=== PATIENT | male | born 1970 | race Caucasian/White ===

== ENCOUNTER 2018-07-14 10:48 | Day surgery (SDC) | payer OTHER ==
[~2018-07-14 10:48] MED LIST: PROPOFOL 200 MG INJ
[2018-07-14] MEDS ORDERED: LIDOCAINE 2% (SDV) 5 ML INJ (12:30)
[2018-07-14] MEDS ORDERED: PROPOFOL 60 ML (12:30)
== END 2018-07-14 15:19 | disposition home or self-care (01) ==
LOC: GIL 10:48
DX: K21.9 Gastro-esophageal reflux disease without esophagitis (principal); K22.10 Ulcer of esophagus without bleeding; I10 Essential (primary) hypertension
CPT/HCPCS: 43239; 88305; 88312

== ENCOUNTER 2018-07-23 06:35 | Day surgery (SDC) | payer OTHER ==
[2018-07-23] MEDS ORDERED: PROPOFOL 200 MG INJ (07:00)
[2018-07-23] MEDS ORDERED: LIDOCAINE 2% (SDV) 5 ML INJ (07:00)
[2018-07-23] MEDS ORDERED: ROCURONIUM 50 MG INJ (07:00)
[2018-07-23] MEDS: CEFTRIAXONE 1 GM/50 ML (PMX) 50 ML IVPB (09:30)
[2018-07-23] MEDS ORDERED: FENTAnyl 50 MCG/ML VIAL (09:34)
[2018-07-23] MEDS ORDERED: MIDAZOLAM 1 MG/ML 2 ML INJ (09:35)
[2018-07-23] MEDS ORDERED: ONDANSETRON 4 MG INJ (10:13)
[2018-07-23] MEDS ORDERED: DEXAMETHASONE 4 MG/ML 5 ML INJ (10:13)
[2018-07-23] MEDS ORDERED: KETOROLAC 30 MG INJ (10:43)
[2018-07-23] MEDS ORDERED: FUROSEMIDE 20 MG INJ (10:44)
[2018-07-23] MEDS ORDERED: OXYCODONE/ACETAMINOPHEN (5/325) TAB PO ×2 (11:00)
[2018-07-23] MEDS ORDERED: HYDROCODONE/APAP (5/325) TAB PO (11:00)
[2018-07-23] MEDS ORDERED: FENTAnyl 50 MCG/ML VIAL IV ×2 (11:00)
[2018-07-23] MEDS ORDERED: HYDROmorphONE 1 MG/5 ML IV SYRINGE IV (11:00)
[2018-07-23] MEDS ORDERED: hydrALAzine 20 MG INJ IV (11:00)
[2018-07-23] MEDS ORDERED: LABETALOL HCL 20MG INJ IV (11:00)
[2018-07-23] MEDS ORDERED: ONDANSETRON 4 MG INJ IV (11:00)
[2018-07-23] MEDS ORDERED: MEPERIDINE 25 MG INJ IV (11:00)
[2018-07-23] MEDS: ONDANSETRON 4 MG INJ IV (11:27)
[2018-07-23] MEDS: HYDROmorphONE 1 MG/5 ML IV SYRINGE IV (11:27)
[2018-07-23] MEDS: ACETAMINOPHEN 1000MG/100ML IV 100 ML IVPB (13:11)
== END 2018-07-23 12:51 | disposition home or self-care (01) ==
LOC: SDS 06:35
DX: N20.0 Calculus of kidney (principal); I10 Essential (primary) hypertension
CPT/HCPCS: 50590; 74018

== ENCOUNTER 2018-07-26 08:48 | Emergency (ER) | payer OTHER ==
[2018-07-26 09:36] LABS: ADD MAN DIFF? NO
[2018-07-26 09:40] LABS: ABNORMAL IP MESSAGE 1; BASOPHILS % 0.5 % (0.0-2.0); EOSINOPHILS % 0.5 % (0.0-7.0); HEMATOCRIT 44.7 % (42.0-52.0); HEMOGLOBIN 14.9 g/dl (14.0-18.0); LYMPHOCYTES # 1.1 10^3/ul (0.8-2.9); LYMPHOCYTES % 27.6 % (15.0-51.0); MEAN CORPUSCULAR HEMOGLOBIN 33.1 pg (29.0-33.0); MEAN CORPUSCULAR HGB CONC 33.3 g/dl (32.0-37.0); MEAN CORPUSCULAR VOLUME 99.3 fl (82.0-101.0); MEAN PLATELET VOLUME 13.1 fl (7.4-10.4); MONOCYTE # 0.6 10^3/ul (0.3-0.9); MONOCYTES % 13.7 % (0.0-11.0); NEUTROPHIL # 2.3 10^3/ul (1.6-7.5); NEUTROPHILS % 57.7 % (39.0-77.0); PLATELET COUNT 147 10^3/UL (140-415); POSITIVE DIFF @See below; RED CELL DISTRIBUTION WIDTH 12.5 % (11.5-14.5)
[2018-07-26 10:04] LABS: ADD UMIC YES; UR ASCORBIC ACID NEGATIVE (NEGATIVE); UR BACTERIA FEW /HPF (NONE SEEN); UR BILIRUBIN (Dip) NEGATIVE (NEGATIVE); UR BLOOD (Dip) 3+ mg/dL (NEGATIVE); UR CLARITY CLEAR (CLEAR); UR COLOR RED (YELLOW); UR GLUCOSE (Dip) NEGATIVE (NEGATIVE); UR KETONES (Dip) NEGATIVE (NEGATIVE); UR LEUKOCYTE ESTERASE (Dip) NEGATIVE Leu/ul (NEGATIVE); UR NITRITE (Dip) NEGATIVE (NEGATIVE); UR RBC > 182 /HPF (0-5); UR SPECIFIC GRAVITY (Dip) 1.001 (1.003-1.030); UR TOTAL PROTEIN (Dip) 1+ mg/dl (NEGATIVE); UR UROBILINOGEN (Dip) NEGATIVE (NEGATIVE); UR WBC 12 /HPF (0-5)
[2018-07-26 10:08] LABS: ALANINE AMINOTRANSFERASE 25 IU/L (13-69); ALBUMIN 4.2 g/dl (3.3-4.9); ALBUMIN/GLOBULIN RATIO 1.31; ALKALINE PHOSPHATASE 72 IU/L (42-121); ANION GAP 7 (5-13); ASPARTATE AMINO TRANSFERASE 22 IU/L (15-46); BILIRUBIN,INDIRECT 0.4 mg/dl (0-1.1); BILIRUBIN,TOTAL 0.4 mg/dl (0.2-1.3); BLOOD UREA NITROGEN 8 mg/dl (7-20); CALCIUM 9.4 mg/dl (8.4-10.2); CARBON DIOXIDE 30 mmol/L (21-31); CHLORIDE 103 mmol/L (97-110); CREATININE 0.87 mg/dl (0.61-1.24); Estimated GFR > 60 mL/min (>60); GLUCOSE 91 mg/dl (70-220); LIPASE 83 U/L (23-300); SODIUM 140 mmol/L (135-144); TOTAL PROTEIN 7.4 g/dl (6.1-8.1)
== END 2018-07-26 12:14 | disposition home or self-care (01) ==
LOC: FTE 08:48
DX: R31.9 Hematuria, unspecified (principal); I10 Essential (primary) hypertension
CPT/HCPCS: 36415; 76775; 80053; 81001; 83690; 85025; 99284-25